=== PATIENT | male | born 1990 ===

== ENCOUNTER 2021-07-08 15:56 | Outpatient (CLI) | payer OTHER | END 2021-07-08 16:12 | disposition home or self-care (01) | LOC: RAD 15:56 | PROVIDERS: ATTEND General Practice | DX: M25.512 Pain in left shoulder (principal) ==

== ENCOUNTER 2021-08-31 11:26 | Outpatient (CLI) | payer OTHER | END 2021-08-31 11:35 | disposition home or self-care (01) | LOC: RAD 11:26 | PROVIDERS: ATTEND Orthopaedic Surgery Hand Surgery | DX: R07.89 Other chest pain (principal) ==